=== PATIENT | female | born 1985 | race Caucasian/White ===

== ENCOUNTER 2016-10-29 11:18 | Inpatient (IN) | payer BC ==
[~2016-10-29] VITALS: Ht 170.2 cm; Wt 82.7 kg
[2016-10-29] MEDS ORDERED: LACTATED RINGER'S 1000ML 1,000 ML IV SCH ×2 (12:12→21:39)
[2016-10-29 12:36] LABS: HEMATOCRIT 36.8 % (37-47); MEAN CORPUSCULAR HEMOGLOBIN 30.3 pg (25-34); MEAN CORPUSCULAR HGB CONC 32.9 g/dl (32-36); MEAN PLATELET VOLUME 10.2 fL (7.4-10.4); PLATELET COUNT 232 K/uL (130-400); WHITE BLOOD COUNT 11.75 K/uL (4.8-10.8)
--- NOTE | 2016-10-29 12:41 | HISTORY & PHYSICAL EXAMINATION ---
DATE OF ADMISSION: 10/29/2016 CHIEF COMPLAINT: Contractions. HISTORY OF PRESENT ILLNESS: The patient is a 31-year-old G1, P0 at 40 weeks and 3 days of gestation who has been feeling contractions since last night. They got closer and more painful around 3:30 a.m. this morning. She has been feeling them every 4-5 minutes. She denies any leakage of fluid or vaginal bleeding. She reports good movements. She denies headaches, change in her vision, nausea, vomiting, epigastric or right upper quadrant pain. She denies chest pain, shortness of breath, fever, chills. Her has been uncomplicated except: 1. Rh negative. She received RhoGAM at 28 weeks. 2. Rubella equivocal. She needs rubella. 3. IVF . 4. History of migraines. PAST MEDICAL HISTORY: As above. PAST SURGICAL HISTORY: Dental wisdom teeth extraction, hysteroscopy with polypectomy by myself in 2013, hysteroscopy and polypectomy by Dr. Barton 2015. MEDICATIONS: vitamins and iron sulfate. ALLERGIES: No known drug allergies. SOCIAL HISTORY: The patient denies smoking, alcohol or drug use. GYNECOLOGIC HISTORY: The patient denies any history of STDs including Chlamydia, gonorrhea, herpes. OBSTETRICAL HISTORY: This is her first . LABS: Her blood type is O negative, antibody screen negative, rubella titer equivocal, RPR nonreactive, hepatitis B surface antigen negative. Urine culture was negative. GC chlamydia cultures were negative. H&H was 12/34, platelets 286, 1-hour Glucola was 103 and GBS culture was negative on 09/30/2016. PHYSICAL EXAMINATION: GENERAL: The patient is alert, oriented x3, not in acute distress. VITAL SIGNS: Stable. Afebrile. CARDIOVASCULAR SYSTEM: S1, S2, RRR. LUNGS: Clear to auscultation bilaterally. ABDOMEN: Soft, gravid, Jonny 7-1/2 to 8 pounds. EXTREMITIES: Nontender, no edema. PELVIC EXAMINATION: Her cervix is 5 cm dilated, 80% effaced, -2 with bulging membranes. heart rate 140s, category 1. Tocometer contractions every 2-3 minutes. ASSESSMENT AND PLAN: The patient is a 30-year-old G1, P0 at 40 weeks and 3 days of gestation presenting with regular contractions in active labor. Vital signs stable, afebrile. GBS negative. heart rate reassuring. Plan is admit. Start IV fluids. The patient considering epidural for pain later and continue to monitor. MTDD
[2016-10-29] MEDS ORDERED: PRENTAB26 PO (13:31)
[2016-10-29 13:32] VITALS: Ht 170.2 cm; Wt 82.7 kg
[2016-10-29] MEDS: LACTATED RINGER'S 1000ML 1,000 ML IV PRN ×2 (15:07→16:03)
[2016-10-29] MEDS ORDERED: FENTANYL CITRATE INJ 50 MCG/1 ML 2 ML VIAL ONE (15:18)
[2016-10-29] MEDS ORDERED: BUPIVACAINE 0.25% 30 ML VIAL ONE (15:18)
[2016-10-29] MEDS ORDERED: FENTANYL 2MCG/ML ROPIV 1.25MG/ML 100ML BAG EPI ONE (15:18)
[2016-10-29] MEDS ORDERED: EpHEDrine SULFATE INJ 50 MG/ML AMP ONE (15:18)
[2016-10-29] MEDS ORDERED: NALOXONE HCL INJ 1 MG in SODIUM CHLORIDE 0.9% 1000ML 1,000 ML IV PRN (16:56)
[2016-10-29] MEDS ORDERED: LACTATED RINGER'S 1000ML 500 ML IV PRN ×2 (16:56→20:00)
[2016-10-29] MEDS ORDERED: NALOXONE HCL INJ 0.4 MG/1 ML VIAL/CARP IV PRN (17:00)
[2016-10-29] MEDS ORDERED: DiphenhydrAMINE HCL 50 MG/ML VIAL IV PRN (17:00)
[2016-10-29] MEDS ORDERED: EpHEDrine SULFATE INJ 50 MG/ML AMP IV PRN (17:00)
[2016-10-29] MEDS ORDERED: ONDANSETRON INJ 2 MG/ML 2 ML VIAL IV PRN (17:00)
[2016-10-29] MEDS ORDERED: FENTANYL 2MCG/ML ROPIV 1.25MG/ML 100ML BAG EPI PRN (17:00)
[2016-10-29] MEDS ORDERED: NALBUPHINE HCL INJ 10 MG/ML AMP IV PRN (17:00)
[2016-10-29] MEDS ORDERED: OXYTOCIN 30 UNITS/500ML NSS IV STA (20:00)
[2016-10-29] MEDS ORDERED: OXYTOCIN 30 UNITS/500ML NSS IV ONE (20:03)
[2016-10-29] MEDS ORDERED: NURSING VERBAL MED ORDER ONE (21:15)
[2016-10-29] MEDS ORDERED: CEFAZOLIN IV 2,000 MG in DEXTROSE 5% 50ML 50 ML IV ONE (21:15)
[2016-10-29] MEDS ORDERED: MISOPROSTOL 200 MCG TAB ONE (21:19)
--- NOTE | 2016-10-29 21:39 | Anesthesia Procedure Note ---
Anesthesia Epidural Removal Nt Date & Time Oct 29, 2016 at 21:39 Vital Signs Pain Intensity: 3.0 Notes Mental Status: alert / awake / arousable, participated in evaluation Nausea / Vomiting: adequately controlled Pain: adequately controlled Airway Patency, RR, SpO2: stable & adequate BP & HR: stable & adequate Hydration State: stable & adequate Neuraxial Anesthesia: was administered Anesthetic Complications: no major complications apparent, pt satisfied with anesthetic care Epidural: removed without complications, with tip intact
[2016-10-29] MEDS ORDERED: HYDROCORTISONE ACETATE 25 MG SUPP PR PRN (21:45)
[2016-10-29] MEDS ORDERED: LANOLIN OINT EXT PRN ×2 (21:45)
[2016-10-29] MEDS ORDERED: OXYTOCIN 30 UNITS/500ML NSS IV PRN (21:45)
[2016-10-29] MEDS ORDERED: MISOPROSTOL 200 MCG TAB PR SCH (21:45)
[2016-10-29] MEDS ORDERED: BENZOCAINE 20% AER SPR 82.5 GM CAN EXT PRN (21:45)
[2016-10-29] MEDS ORDERED: OXYCODONE/ACETAMINOPHEN 5-325 TAB PO PRN (21:45)
[2016-10-29] MEDS ORDERED: SUPERCREAM 0.870 % 15GM JAR EXT PRN (21:45)
[2016-10-30] VITALS (10 sets, daily range): BP systolic 112–124; BP diastolic 66–78; PULSE 65–97; TEMP 36.6–37.3; O2SAT 96–98
--- NOTE | 2016-10-30 07:06 | DELIVERY SUMMARY ---
DATE OF OPERATION: 10/29/2016 DETAILS OF DELIVERY: The patient was found to be a fully dilated and desired to push. She pushed for about 1 hour and delivered the head without difficulty. There was noted to be tight nuchal cords around the neckx3. The shoulders were delivered with minimal traction. The nuchal cords were released and then baby was handed off to the mother where mouth and nose were suctioned. Cord blood was clamped x2 and cut. It was a 3-vessel cord. Cord blood was obtained. Vagina and perineum were checked for lacerations. There was a second degree perineal laceration with vaginal extension. It was confirmed to be a second degree with rectal exam. Excellent sphincter tone was noted. The gloves were changes. The external fibers of the sphincter muscles were reinforced with Allis clamps and they were brought together with 2-0 Vicryl in a U-type suture. And now rectal exam was repeated. There are no sutures felt and excellent sphincter tone was noted and gloves were changed. The vaginal mucosa was repaired with 2-0 Vicryl in a running-locked fashion and the perineal body muscles and bulbocavernosus in a running fashion, and skin in a subcuticular fashion. Placenta was found to be in the vagina, delivered spontaneously as intact and complete. Uterus was explored and found to be empty. Fundus was firm. Lower segment was cleared of all clots and debris. EBL was 300 ml. There was oozing of blood from the repair. It was repaired again with 2-0 Vicryl in a running locked fashion. The vaginal mucosa was found to be fragile and oozing blood and decision was made to apply Seema powder over the vaginal mucosa for hemostasis. Excellent hemostasis was achieved. Two 4x4 sponges were placed over for pressure and those were removed after 2 hours. Mom and baby tolerated the procedure well. Sponge, lap, and needle count were correct x2. Baby was a viable male infant, Apgars 7/10. The weight is pending. No complications happened and I was present during the whole procedure. I attest to the content of the Intraoperative Record and any orders documented therein. Any exceptions are noted below. MTDD
[2016-10-30 07:11] LABS: HEMATOCRIT 36.5 % (37-47)
[2016-10-30] MEDS: IBUPROFEN 600 MG TAB PO PRN ×3 (07:19→15:59)
[2016-10-30] MEDS: PRENATAL VITAMIN TAB PO SCH (08:32)
[2016-10-30] MEDS: DOCUSATE SODIUM 100 MG CAP PO SCH ×2 (08:32→20:00)
[2016-10-30] MEDS: FERROUS SULFATE 325 MG TAB PO SCH (08:33)
[2016-10-30] MEDS ORDERED: MEASLES, MUMPS & RUBELLA VIRUS VIAL SQ. ONE (09:00)
[2016-10-30] MEDS ORDERED: DIPHTHERIA/TETANUS/PERTUSSIS 0.5 ML SYR/VIAL IM. ONE (09:00)
--- NOTE | 2016-10-30 09:14 | OB/GYN Progress Note ---
NIB FINISHER Progress Note Date of Service Oct 30, 2016. Subjective conversation w/ patient, physical exam Ambulation: ambulating normally Voiding: no voiding problems Passing Gas: Yes Diet Tolerance: Regular Diet Lochia: Small Feeding Type: Breast Feeding Objective Vital Signs Date Time Temp Pulse Resp B/P (MAP) Pulse Ox O2 Delivery O2 Flow Rate FiO2 10/30/16 08:53 36.7 85 17 117/68 (84) 96 Room Air 10/30/16 03:25 36.8 18 124/78 (93) Room Air 10/30/16 01:15 Room Air 10/30/16 01:14 37.3 97 18 124/70 (88) Room Air Physical Exam General Appearance: WELL-APPEARING, NO APPARENT DISTRESS Abdomen: non tender, soft Fundus: Firm Incision Description: Erythema Extremities: non-tender, normal inspection, no pedal edema hemorrhoid tag inflamed Laboratory Results Last 24 Hours Test 10/29/16 12:20 10/30/16 06:35 White Blood Count 11.75 K/uL Red Blood Count 4.00 M/uL Hemoglobin 12.1 g/dL 12.2 g/dL Hematocrit 36.8 % 36.5 % Mean Corpuscular Volume 92.0 fL Mean Corpuscular Hemoglobin 30.3 pg Mean Corpuscular Hemoglobin Concent 32.9 g/dl RDW Standard Deviation 43.5 fL RDW Coefficient of Variation 13.0 % Platelet Count 232 K/uL Mean Platelet Volume 10.2 fL
[2016-10-30] MEDS ORDERED: BISACODYL 5 MG TABEC PO SCH (20:00)
[2016-10-30] MEDS: ACETAMINOPHEN 325 MG TAB PO PRN (20:34)
[2016-10-30] MEDS: MAGNESIUM HYDROXIDE SUSP 30 ML UDC PO SCH ×2 (22:00→22:18)
[2016-10-30] MEDS ORDERED: NURSING VERBAL MED ORDER ONE (22:15)
[2016-10-31] MEDS: ACETAMINOPHEN 325 MG TAB PO PRN (05:03)
[2016-10-31 06:32] LABS: HEMATOCRIT 30.3 % (37-47); MEAN CELL VOLUME 93.2 fL (80-100); MEAN CORPUSCULAR HEMOGLOBIN 32.6 pg (25-34); MEAN PLATELET VOLUME 10.3 fL (7.4-10.4); PLATELET COUNT 180 K/uL (130-400); RED BLOOD COUNT 3.25 M/uL (4.2-5.4); WHITE BLOOD COUNT 10.04 K/uL (4.8-10.8)
[2016-10-31] MEDS ORDERED: BISACODYL 10 MG SUPP PR PRN (07:00)
[2016-10-31 07:28] VITALS: BP 128/73; PULSE 65; TEMP 36.6
[2016-10-31] MEDS: PRENATAL VITAMIN TAB PO SCH (08:04)
[2016-10-31] MEDS: FERROUS SULFATE 325 MG TAB PO SCH (08:04)
[2016-10-31] MEDS: DOCUSATE SODIUM 100 MG CAP PO SCH (08:04)
[2016-10-31] MEDS ORDERED: MTR600X PO (10:27)
--- NOTE | 2016-10-31 10:29 | Discharge Instructions ---
Discharge Instructions Date of Service Oct 31, 2016. Admission Reason for Admission: Induction Discharge Discharge Diagnosis / Problem: term delivered Discharge Goals Goal(s): Routine recovery after delivery Activity Recommendations Activity Limitations: as noted below Lifting Limitations: no more than 10 pounds, gradually increase as tolerated Exercise/Sports Limitations: gradually increase as tolerated May Resume Sexual Activity: after follow-up appointment Driving or Machine Use: resume 3 days after discharge . Instructions / Follow-Up Instructions / Follow-Up ACTIVITY RECOMMENDATIONS: * Gradual return to full activity over the next 2-3 weeks. * No lifting - nothing heavier than baby over the next 2-3 weeks. * Do not engage in vigorous exercise, sexual activity or sports until cleared by your physician. * Do not drive or operate any motorized equipment until cleared by your physician. * You may shower/bathe daily. BREAST CARE: If you are not breast feeding: * Wear a supportive bra 24 hours a day for one to two weeks. * Avoid stimulating your breasts and nipples as much as possible during the first few weeks after delivery. * When taking a shower, have the warm water hit your back, not breasts. * When your breasts feel full, apply ice packs. Usually three to four times a day helps ease the discomfort. * Take a mild pain medication (Tylenol/Motrin) when you are uncomfortable. If breast feeding: * Use breast milk to lubricate nipples. Lansinoh cream may be used for sore nipples. You do not need to remove cream prior to breast feeding. If using a different brand of cream, check the label for directions regarding removal of cream prior to nursing. * Wear a supportive bra. * If having problems with breasts or breast feeding, call a specialty development consultant or your health care provider. EPISIOTOMY CARE: After delivery, if you have an episiotomy (stitches), the following steps will ease discomfort and aid healing. * For the first 24 hours after delivery, place ice packs next to your episiotomy to help reduce swelling. * After the first 24 hour-period, sitz baths, either portable or in the tub, are suggested. A shower with a shower arm sprayed over the episiotomy may be comforting. * Tawanna care should be done after each voiding and bowel movement. Squirt warm water from a plastic bottle over the perineum (region of the body between the anus and urinary opening) and pat dry. * Use Dermoplast to ease discomfort. Shake container. [place] directly over the episiotomy. * Place a Tucks on a clean sanitary pad next to your episiotomy. OVER THE COUNTER MEDICATION: * For discomfort or pain, you may use Acetaminophen (Tylenol), Ibuprofen (Advil ), or Naproxen (Aleve) following the package directions. * For constipation you may use Colace following the package directions. SPECIAL CARE INSTRUCTIONS: When you are discharged from the hospital, it is important for you to follow the instructions listed below: * During the first week at home, you should be able to care for yourself and your baby. In addition, the usual light household activities are encouraged. * Limit your activities to the way you feel. Do not try to clean the house or move furniture. Be sensible. * If you actively engage in sports and have done so up until the time of your delivery, you may resume these activities as soon as you feel able. This may take up to one month or even longer. Use good judgment. * Continue to take your vitamins for at least six weeks after the of your baby. * Your diet need not be limited unless you were on a special diet before your delivery. Breast-feeding mothers need around 2500 calories per day and at least 64-80 ounces of fluid per day (8 to 10 glasses). * You should eat foods from the four major food groups. Crash diets or fad diets are to be avoided. Eating lean meats, fresh fruits and vegetables, low-fat dairy products, high fiber foods and a regular exercise program, will help you get back to your pre- weight without putting your health at risk. * Constipation is sometimes a problem after delivery. Take a mild laxative as needed. If breast feeding, Milk of Magnesia is acceptable to use. You may use a suppository or Fleets enema if no episiotomy. * A daily shower or tub bath is suggested. Be sure to thoroughly and gently dry the perineum. * A bloody vaginal discharge will usually continue until around four weeks post . A small amount of bleeding may continue for as long as six weeks. Vaginal discharge changes from the bright red bleeding after delivery to pink then brownish and finally yellowish-pink before becoming white and disappearing. * Bleeding may increase with activity. Your first period may come in 4-8 weeks. If you are breast feeding, your period may be delayed even longer. * [place] (sex) can begin whenever both you and your partner feel comfortable and do not have any form of genital infection. It is recommended that you wait until after your return appointment and discuss with your physician. If you have questions, please talk to your health care practitioner. A condom should be used to prevent infection and . * Foreplay, gentle intercourse and lubrication is very important the first several times to prevent pain. A water-based lubricant such as K-Y jelly or Astroglide may be used. * Tampons may be used six weeks after delivery. * Douching should be avoided for 6 weeks after delivery. * If you have RH negative blood and your baby is RH positive, you will receive RHOGAM by injection prior to discharge. The nurse will give you a card to keep with you that has the date and place that you received RHOGAM after delivery. * During your care, you had a Rubella screen done to check for the presence of rubella antibodies in your blood. If your test was negative, you will receive a Rubella vaccine prior to discharge. This vaccine may cause a fever, soreness at the injection site and flu-like symptoms. If these symptoms persist, notify your health care practitioner. is not advised for three months after a Rubella vaccine. There is a higher chance of having a baby with defects if conceived within three months of getting the vaccine. * If you were discharged 24 hours from delivery or before 48 hours: Visiting nurses will come to your home 48 hours after discharge to assess you and your baby. The visiting nurse will meet with you while you are in the hospital to arrange a time and get directions to your home. * Verbalizes understanding of car seat law as reviewed with patient nursing. * Car Seat hand-out given and reviewed with patient by nursing. * Shaken baby information reviewed with patient by nursing. Call you doctor if: * Heavy bleeding (saturating several pads an hour) or passing clots the size of your fist. * A fever >101 degrees F (38.3 degrees C) on two occasions four hours apart and/or chills. * Unusual pain in the pelvic or vaginal areas. * "Baby Blues" lasting longer than two weeks. If you have any questions or concerns, call your health care practitioner at . FOLLOW-UP VISIT: * Please call the office at to schedule a 6 week examination. It is important you keep this appointment. * It is important for you to make arrangements for either yearly or twice yearly check-ups thereafter. Current Hospital Diet Patient's current hospital diet: Regular OB Diet Discharge Diet Recommended Diet: Regular OB Diet Fluid Restriction: None Pending Studies Studies pending at discharge: no Medical Emergencies . Who to Call and When: Medical Emergencies: If at any time you feel your situation is an emergency, please call 911 immediately. . Non-Emergent Contact Non-Emergency issues call your: Primary Care Provider . . "Provider Documentation" section prepared by Brice Higgins. . VTE Core Measure Inpt VTE Proph given/why not?: Treatment not indicated
--- NOTE | 2016-10-31 10:31 | OB/GYN Progress Note ---
RUBBER MOLD MAKER Progress Note Date of Service Oct 31, 2016. Subjective conversation w/ patient, physical exam Ambulation: ambulating normally Voiding: no voiding problems Passing Gas: Yes Diet Tolerance: Regular Diet Lochia: Small Objective Vital Signs Date Time Temp Pulse Resp B/P (MAP) Pulse Ox O2 Delivery O2 Flow Rate FiO2 10/31/16 07:55 Room Air 10/31/16 07:28 36.6 65 16 128/73 (91) Room Air 10/30/16 23:20 36.9 67 16 118/66 (83) Room Air 10/30/16 23:20 Room Air 10/30/16 19:30 36.9 88 20 120/72 (88) Room Air 10/30/16 15:53 37.0 85 20 112/69 (83) 10/30/16 15:50 37.0 85 20 112/69 10/30/16 15:30 Room Air 10/30/16 12:15 36.8 65 18 122/72 (89) 97 Room Air Physical Exam General Appearance: WELL-APPEARING, NO APPARENT DISTRESS Abdomen: non tender, soft, no organomegaly Fundus: Firm Extremities: non-tender, normal inspection, no pedal edema Laboratory Results Last 24 Hours Test 10/31/16 06:17 White Blood Count 10.04 K/uL Red Blood Count 3.25 M/uL Hemoglobin 10.6 g/dL Hematocrit 30.3 % Mean Corpuscular Volume 93.2 fL Mean Corpuscular Hemoglobin 32.6 pg Mean Corpuscular Hemoglobin Concent 35.0 g/dl RDW Standard Deviation 46.1 fL RDW Coefficient of Variation 13.4 % Platelet Count 180 K/uL Mean Platelet Volume 10.3 fL Assessment and Plan Post- Day Number: 2 Continue Routine Care: discharged
[2016-10-31 11:14] VITALS: BP_DIAS 73; PULSE 65; TEMP 36.6
== END 2016-10-31 12:00 | disposition home or self-care (01) | DRG 775 ==
LOC: C.LD 11:18 → C.OPB 11:18 → C.LD 12:13 → C.OPB 12:30 → C.OBG 10-30 00:18 → EDSTATUS 10-30 11:19
PROVIDERS: ADMIT Obstetrics & Gynecology; ATTEND Obstetrics & Gynecology
PROC: 10E0XZZ Delivery of Products of Conception, External Approach (ICD-10-PCS; principal; 2016-10-29)
PROC: 0KQM0ZZ Repair Perineum Muscle, Open Approach (ICD-10-PCS; principal; 2016-10-29)
DX: O36.0930 Maternal care for other rhesus isoimmunization, third trimester, not applicable or unspecified (principal); O09.813 Supervision of pregnancy resulting from assisted reproductive technology, third trimester; O69.1XX0 Labor and delivery complicated by cord around neck, with compression, not applicable or unspecified; O70.1 Second degree perineal laceration during delivery; Z3A.40 40 weeks gestation of pregnancy; Z37.0 Single live birth

== ENCOUNTER 2019-03-07 07:25 | Inpatient (IN) ==
--- NOTE | 2019-02-22 09:46 | PAT Medication Instructions ---
Medication Instructions Date of Service February 22, 2019 Home Medications Medication Instructions Recorded Ibuprofen 600 mg PO Q4H PRN #30 tab 10/31/16 Multivit/Min/Iron/Fol Ac/Pren ( Vitamin) 1 tab PO DAILY Ibuprofen 600 mg PO Q4H PRN ASK your surgeon for instructions Ibuprofen 600 mg PO Q4H PRN DO NOT take the morning of surgery Multivit/Min/Iron/Fol Ac/Pren ( Vitamin) 1 tab PO DAILY Other Notes If you have any questions please call us at [phone] or [phone] or [phone] or [phone]
--- NOTE | 2019-02-23 11:44 | Anesthesiology Consultation ---
Date of Service February 23, 2019 Assessment & Plan (1) Encounter for pre-operative examination: Hx epidural with previous vaginal delivery (2016). Patient states she had LE hives day after delivery. No definitive reason but was told maybe related to epidural-- resolved with benadryl. Chart Review Chart Review: Acceptable Risk for Surgery (pending preop labs) and Patient seen in Pre Admission Testing Teaching & Discussion Pre-Anesthesia Teaching/Discussion Notes: Instructed NPO after midnight before surgery,except medications with 15 cc of water. Medication instructions provi ded according to the PAT guidelines. History Surgery Operation Date: 03/07/19 08:50 Proposed Procedures p Section in LD - Silvia Suarez MD Height/Weight Height: 5 ft 7 in Weight: 73 kg Allergies Allergy/AdvReac Type Severity Reaction Status Date / Time albuterol Allergy Intermediate RASH Verified 02/23/19 08:26 Medications Home Medications Medication Instructions Recorded Confirmed Last Taken 1 dose PO QPM 02/23/19 02/23/19 Unknown cholecalciferol (vitamin D3) 5,000 unit PO QPM 02/23/19 02/23/19 Unknown [Vitamin D3] iron 1 tab PO HS 02/23/19 02/23/19 Unknown Past Medical History Medical History Chronic headache History of ovarian cyst Past Surgical History Surgical History History of wisdom tooth extraction Status post hysteroscopic polypectomy x 2 Past Anesthesia History No Family Hx of Anesthesia Complications and Other Hx epidural with previous vaginal delivery (2017). Patient states she had LE hives day after delivery. No definitive reason but was told maybe related to epidural-- resolved with benadryl. History of PONV No Hx of PONV and Hx of Motion Sickness Social History Smoking Status: Never smoker Do You Dip or Chew Tobacco: No Hx Alcohol Use: No Hx Substance Use: No substance use type: does not use Review of Systems Patient denies chest pain, shortness of breath, reflux, cough, wheezing, palpitations. Physical Exam Vital Signs VITALS BP 119/82 P 71 TEMP 97.8 SP02 97%RA RESP 16 PHYSICAL Full neck and c-spine range of motion. Full TMJ range of motion. TMD 3 finger breaths Mallampati Score 1 Dentition: intact Lungs: clear throughout to auscultation Cardiac: regular rate and rhythm, no murmurs noted Spine: normal Carotid arteries: negative bruit Extremities: no edema
[2019-02-23 12:16] LABS: Eosinophils # (auto) 0.04 K/uL (0-0.5); Eosinophils % (auto) 0.5 %; Hematocrit (blood only) 36.3 % (37-47); Hemoglobin 12.5 g/dL (12.0-16.0); Immature Granulocytes # (auto) 0.04 K/uL (0.00-0.02); Immature Granulocytes % (auto) 0.5 %; Lymphocytes # (auto) 1.46 K/uL (1.2-3.4); Mean Corpuscular Hemoglobin 31.9 pg (25-34); Mean Corpuscular Hgb Conc 34.4 g/dL (32-36); Mean Corpuscular Volume 92.6 fL (80-100); Mean Platelet Volume 10.6 fL (7.4-10.4); Monocytes # (auto) 0.39 K/uL (0.11-0.59); Monocytes % (auto) 4.8 %; Neutrophils # (auto) 6.16 K/uL (1.4-6.5); Neutrophils % (auto) 76.2 %; Platelet Count 194 K/uL (130-400); RDW Coefficient of Variation 12.8 % (11.5-14.5); RDW Standard Deviation 43.3 fL (36.4-46.3); Red Blood Count 3.92 M/uL (4.2-5.4); White Blood Count 8.09 K/uL (4.8-10.8)
[~2019-03-07 07:25] MED LIST: CEFAZOLIN 2,000 MG in SYRINGE 0 ML IV SCH; CEFAZOLIN 2000MG 2,000 MG/15 ML SYR IV SCH; CITRIC ACID/SODIUM CITRATE 15 ML UDC PO SCH; LACTATED RINGER'S 1,000 ML IV SCH
--- NOTE | 2019-03-07 09:08 | History & Physical Bridge Note ---
Date of Service March 07, 2019 History & Physical Bridge Note I have examined the patient, reviewed the History & Physical and in the interval since the performance of the History & Physical I have noted the following changes of clinical significance: no changes noted Bed side US done is baby is breech Desires primary Csection and tubal ligation
[2019-03-07] MEDS ORDERED: OXYTOCIN 10 UNITS/ML VIAL ONE ×2 (09:20→10:50)
[2019-03-07] MEDS ORDERED: fentaNYL citrate 100 MCG/2 ML VIAL ONE (09:20)
[2019-03-07] MEDS ORDERED: MoRPHine SULFATE PF 1 MG/ML 10 ML AMP/VIAL ONE (09:20)
[2019-03-07] MEDS ORDERED: BENZOCAINE 20% AER SPR 82.5 GM CAN EXT PRN (09:29)
[2019-03-07] MEDS ORDERED: SENNA 8.6 MG TAB PO PRN (09:29)
[2019-03-07] MEDS ORDERED: DiphenhydrAMINE HCL 50 MG/ML VIAL IV PRN ×2 (09:29→10:43)
[2019-03-07] MEDS ORDERED: KETOROLAC 30 MG/ML VIAL IV PRN (09:29)
[2019-03-07] MEDS ORDERED: HYDROCORTISONE ACETATE 25 MG SUPP PR PRN (09:29)
[2019-03-07] MEDS ORDERED: OXYCODONE/ACETAMINOPHEN 5mg/325mg TAB PO PRN (09:29)
[2019-03-07] MEDS ORDERED: SUPERCREAM 0.870% 15 GM JAR EXT PRN (09:29)
[2019-03-07] MEDS ORDERED: MAGNESIUM HYDROXIDE SUSP 30 ML UDC PO PRN (09:29)
[2019-03-07] MEDS ORDERED: ONDANSETRON INJ 2 MG/ML 2 ML VIAL IV PRN ×2 (09:29→10:43)
[2019-03-07] MEDS ORDERED: PROMETHAZINE HCL 25 MG in SODIUM CHLORIDE 0.9% 50 ML IV PRN ×2 (09:29→10:43)
[2019-03-07] MEDS ORDERED: DIPHTHERIA/TETANUS/PERTUSSIS 0.5 ML SYR/VIAL IM ONE (09:29)
[2019-03-07] MEDS ORDERED: LACTATED RINGER'S 1,000 ML IV SCH ×3 (09:30→14:03)
[2019-03-07] MEDS ORDERED: PHENYLEPHRINE 100MCG/ML 5ML SYR ONE ×2 (10:25→11:10)
[2019-03-07] MEDS ORDERED: NALBUPHINE HCL INJ 10 MG/ML AMP IV PRN (10:43)
[2019-03-07] MEDS ORDERED: NALOXONE HCL 1 MG in SODIUM CHLORIDE 0.9% 1000ML 1,000 ML IV PRN (10:43)
[2019-03-07] MEDS ORDERED: ePHEDrine sulfate 50 MG/ML AMP IV PRN (10:43)
[2019-03-07] MEDS ORDERED: NALOXONE HCL 0.4 MG/1 ML VIAL/CARP IV PRN (10:43)
[2019-03-07] MEDS ORDERED: MoRPHine SULFATE PF 1 MG/ML 10 ML AMP/VIAL INT SPINAL ONE (10:43)
[2019-03-07] MEDS ORDERED: HYDROmorphone INJ 0.5 MG/0.5 ML SYR IV PRN (10:43)
[2019-03-07] MEDS ORDERED: LACTATED RINGER'S 500 ML IV PRN (10:43)
[2019-03-07] MEDS ORDERED: NALOXONE HCL 0.08 MG in SYRINGE 1.8 ML IV PRN (10:43)
[2019-03-07] MEDS ORDERED: SODIUM CHLORIDE 0.9% 1000ML 1,000 ML IV SCH (10:45)
[2019-03-07] MEDS ORDERED: DC INTRASPINAL MORPHINE SCH (10:45)
[2019-03-07] MEDS ORDERED: NO NARCOTICS OR SEDATIVES SCH (10:45)
--- NOTE | 2019-03-07 11:29 | Post Operative Brief Note ---
Immediate Post Op Note v1 Date of Surgery March 07, 2019 Pre & Post Diagnosis Operation Date: 03/07/19 09:20 Pre-Op Diagnosis: Primary caesarean section for breech presentation at term; desires permanent sterilization Post-Op Diagnosis: Same as pre-op I identified the patient and participated in the time-out.: Yes Procedure Operation Date: 03/07/19 09:20 Actual Procedures p Primary Section in LD; delivery of live female child at 1041 - Silvia Suarez MD s Bilateral Tubal Ligation Labor & Deliv - Silvia Suarez MD Surgeon Silvia Suarez MD Lug Loader BERNARD Alcazar Estimated Blood Loss 700 Findings Consistent with Post-Op Diagnosis Fluids 2600 ML LR Drains [place] Catheter (330 ML) Anesthesia Type Spinal Complications none Disposition Accompanied Patient To Recovery: Yes Disposition: L&D Overlapping Procedure I was present for: the critical portions of procedure. (I WAS PRESENT FOR THE ENTIRE CASE)
[2019-03-07] MEDS: OXYTOCIN 20 UNITS in LACTATED RINGER'S 1,000 ML IV SCH ×2 (12:06→20:04)
--- NOTE | 2019-03-07 12:15 | Operative Report ---
DATE OF OPERATION: 03/07/2019 PREOPERATIVE DIAGNOSES: The patient is a 33-year-old G2, P1-0-0-1 at 39.3 weeks of gestation, persistent breech presentation at term, declines external cephalic version and desires permanent sterilization, declines nonsurgical reversible contraceptive options. POSTOPERATIVE DIAGNOSES: The patient is a 33-year-old G2, P1-0-0-1 at 39.3 weeks of gestation, persistent breech presentation at term, declines external cephalic version and desires permanent sterilization, declines nonsurgical reversible contraceptive options. PROCEDURE: Primary Low Transverse Section with Bilateral tubal ligation with [place] Method SURGEON: Silvia Suarez MD SYNCHRO ASSEMBLER: BERNARD Alcazar ESTIMATED BLOOD LOSS: 700 mL. FLUIDS: 2600 mL of lactated Ringer. DRAINS: Dumont catheter drained 330 mL of urine. ANESTHESIA: Spinal, Dr. Duvall. COMPLICATIONS: None. FINDINGS: Baby was a viable female infant delivered at 10:41 a.m. in melina breech presentation, Apgars were 9/9 and weight was 3100 grams. Maternal findings, normal uterus, fallopian tubes and ovaries. DESCRIPTION OF PROCEDURE: The patient was taken to the operating room where spinal anesthesia was given without difficulty. She was placed in dorsal supine position with a leftward tilt. She was prepared and draped in usual sterile fashion. A Pfannenstiel skin incision was made and carried through to the underlying layer of fascia with the Bovie. Fascia was incised in the midline and incision was extended laterally with the help of Mercedes scissors. Lower aspect of the fascial incision was then grasped with 2 Wesley clamps and elevated. Underlying rectus muscles were dissected off sharply with Mercedes scissors. Upper aspect of the fascial incision was then grasped with 2 Wesley clamps and elevated. Underlying rectus muscles were dissected off sharply with Mercedes scissors. Rectus muscles were in the midline. Peritoneum was entered bluntly and the peritoneal incision was extended superiorly and inferiorly with good visualization of the bladder. Bladder blade was inserted and the vesicouterine peritoneum was identified, grasped with pickups, entered sharply with Metzenbaum scissors. Bladder flap was created digitally and a bladder blade was reinserted. Lower uterine segment was incised in transverse fashion. Incision was extended laterally with the help of bandage scissors. Membranes were ruptured. Clear fluid was obtained. Baby was in melina breech position. Baby's buttocks were held and delivered without difficulty and then legs were delivered, then body and then arms without difficulty and then head came out right after spontaneously. Mouth and nose were suctioned. Baby was dried. Cord was clamped x2 and cut at 1-minute delay. Baby was handed off to the waiting pediatric team with Dr. Alcaraz. Cord blood was obtained. Placenta was delivered manually as intact and complete. Uterus was exteriorized, cleared of all clots and debris. The uterine incision was repaired with 0 Vicryl in a running locked fashion and a second imbricating layer was placed with 0 Vicryl in a running locked fashion. There was oozing on the left of middle of incision close to the suture line. It was controlled with [id number] stitches x2. Excellent hemostasis was achieved. The cul-de-sac was irrigated with warm normal saline and suctioned and then attention was turned to the patient and the fallopian tubes. Right fallopian tube was identified, grasped with 2 Andrews clamps and the mesosalpinx was entered on the avascular site with 2-0 plain catgut and the tube was tied and a loop was made around these clamps and then another tie was placed under the first tie and the fallopian tube above this tie was incised and sent to the pathology. About 3-4 cm length of fallopian tube was removed and the rest of the tube was hemostatic. Attention was turned to the left fallopian tube. It was identified, grasped with Andrews clamps x2 and the mesosalpinx was entered with 2-0 plain catgut from the avascular site. Tube was tied and the loop was made around these clamps. A second tie was placed under the first tie and then fallopian tube above the ties were incised with Metzenbaum scissors. About 3-4 cm length was excised and removed and sent to pathology. The base of the tube was hemostatic. The uterine incision was checked to be hemostatic again. Uterus was returned to the abdomen and pelvis was irrigated with warm normal saline and suctioned and then gutters were emptied of clots and then incision was checked to be again hemostatic. Parietal peritoneum was reapproximated with 3-0 Vicryl in a running fashion. Rectus muscles were reapproximated with the same suture in a running fashion and then good hemostasis was achieved on the muscles and under the rectus fascia. Then rectus fascia was reapproximated with 0 Vicryl in a running fashion. Subcuticular fat tissue was brought together with 3-0 Vicryl in a running fashion and the skin was closed with 4-0 Monocryl in a subcuticular fashion. The patient tolerated the procedure well. Sponge, lap, needle count was correct x3. She was given 2 grams of cefazolin before surgery. She was taken to recovery room in stable condition. No complications happened and I was present during whole procedure. I attest to the content of the Intraoperative Record and any orders documented therein. Any exceptions are noted below. LULU
--- NOTE | 2019-03-07 13:10 | Anesthesiology Progress Note ---
Date of Service March 07, 2019 Anesthesia Post Procedure Vital Signs Vital Signs: Temp Pulse Resp BP Pulse Ox 03/07/19 13:06 56 L 111/64 03/07/19 13:03 55 L 100 03/07/19 12:58 61 99 03/07/19 12:56 55 L 109/66 03/07/19 12:53 57 L 100 03/07/19 12:48 54 L 99 03/07/19 12:46 53 L 111/61 03/07/19 12:43 54 L 99 03/07/19 12:38 63 97 03/07/19 12:37 72 93 03/07/19 12:34 57 L 103/58 L 03/07/19 12:33 60 100 03/07/19 12:28 81 100 03/07/19 12:24 71 111/58 L 03/07/19 12:23 72 100 03/07/19 12:18 92 H 104/51 L 100 03/07/19 12:14 20 03/07/19 12:13 75 93 03/07/19 12:12 76 89 L 03/07/19 12:10 20 03/07/19 12:08 65 100 03/07/19 12:04 63 120/58 L 03/07/19 12:03 65 98 03/07/19 11:58 81 100 03/07/19 11:54 51 L 114/56 L 03/07/19 11:53 56 L 100 03/07/19 11:48 55 L 100 03/07/19 11:44 74 110/66 03/07/19 11:43 58 L 100 03/07/19 11:38 55 L 100 03/07/19 11:34 34.9 C L 53 L 20 104/64 03/07/19 11:33 55 L 100 03/07/19 10:01 66 99 03/07/19 09:56 63 100 03/07/19 09:51 68 99 03/07/19 09:46 68 100 03/07/19 09:41 57 L 98 03/07/19 09:36 62 100 03/07/19 09:35 67 93 03/07/19 09:31 60 100 03/07/19 09:26 56 L 100 03/07/19 09:21 71 100 03/07/19 09:16 60 99 03/07/19 09:11 68 98 03/07/19 09:06 57 L 100 03/07/19 07:39 70 121/73 03/07/19 07:30 36.8 C 20 Transfer of Care Handoff Completed per policy Notes Mental Status: alert / awake / arousable Patient Amnestic to Procedure: Yes Nausea / Vomiting: adequately controlled Pain: adequately controlled Airway Patency, RR, SpO2: stable & adequate BP & HR: stable & adequate Hydration State: stable & adequate Neuraxial Anesthesia: was administered and sensory block is resolving Anesthetic Complications: no major complications apparent and Pt Satisfied with anesthetic care Notes: Her temperature is now 36.
[2019-03-07] MEDS: KETOROLAC 30 MG/ML VIAL IV PRN ×2 (14:09→20:10)
[2019-03-07] MEDS: SIMETHICONE 80 MG CHEW PO SCH ×2 (16:16→20:09)
[2019-03-07] MEDS: DOCUSATE SODIUM 100 MG CAP PO SCH (20:09)
[2019-03-07] MEDS ORDERED: LACTATED RINGER'S 500 ML IV ONE ×2 (22:41→22:45)
--- NOTE | 2019-03-07 22:48 | Obstetrical Progress Note ---
Date of Service March 07, 2019 Subjective Patient is seen and examined. She feels well, no complaints. Pain is under control with oral meds. Tolerating clear diet with out N&V Flatus neg Bleeding is minimal No AMADOR/ Change in vision/fever/ chills/ CP/ SOB/ N&V/ Leg pain Breast feeding without problems Vital Signs Temp Pulse Pulse Resp BP BP Pulse Ox 03/07/19 22:00 18 97 03/07/19 20:00 18 99 03/07/19 18:50 18 100 03/07/19 17:45 18 99 03/07/19 16:45 67 18 126/70 99 03/07/19 15:45 62 18 102/64 99 03/07/19 15:15 59 L 18 106/55 L 98 03/07/19 14:45 36.5 C 62 18 109/63 99 03/07/19 14:33 60 99 03/07/19 14:28 68 98 03/07/19 14:23 67 99 03/07/19 14:21 63 93 03/07/19 14:18 65 99 03/07/19 14:13 62 98 03/07/19 14:08 59 L 97 03/07/19 14:07 54 L 109/63 03/07/19 14:03 57 L 96 03/07/19 13:58 61 99 03/07/19 13:53 66 99 03/07/19 13:48 65 99 03/07/19 13:43 57 L 98 03/07/19 13:38 85 97 03/07/19 13:37 74 119/62 03/07/19 13:35 36.5 C 18 03/07/19 13:33 64 97 03/07/19 13:28 69 98 03/07/19 13:23 64 99 03/07/19 13:18 65 99 03/07/19 13:13 65 100 03/07/19 13:08 60 100 03/07/19 13:06 56 L 111/64 03/07/19 13:05 36.3 C L 20 03/07/19 13:03 55 L 100 03/07/19 12:58 61 99 03/07/19 12:56 55 L 109/66 03/07/19 12:53 57 L 100 03/07/19 12:48 54 L 99 03/07/19 12:46 53 L 111/61 03/07/19 12:43 54 L 99 03/07/19 12:40 35.2 C L 20 03/07/19 12:38 63 97 03/07/19 12:37 72 93 03/07/19 12:34 57 L 103/58 L 03/07/19 12:33 60 100 03/07/19 12:28 81 100 03/07/19 12:24 71 111/58 L 03/07/19 12:23 72 100 03/07/19 12:18 92 H 104/51 L 100 03/07/19 12:14 20 03/07/19 12:13 75 93 03/07/19 12:12 76 89 L 03/07/19 12:10 20 03/07/19 12:08 65 100 03/07/19 12:04 63 120/58 L 03/07/19 12:03 65 98 03/07/19 11:58 81 100 03/07/19 11:54 51 L 114/56 L 03/07/19 11:53 56 L 100 03/07/19 11:48 55 L 100 03/07/19 11:44 74 110/66 03/07/19 11:43 58 L 100 03/07/19 11:38 55 L 100 03/07/19 11:34 34.9 C L 53 L 20 104/64 03/07/19 11:33 55 L 100 Pulse Ox 03/07/19 22:00 03/07/19 20:00 03/07/19 18:50 03/07/19 17:45 03/07/19 16:45 03/07/19 15:45 03/07/19 15:15 03/07/19 14:45 99 03/07/19 14:33 03/07/19 14:28 03/07/19 14:23 03/07/19 14:21 03/07/19 14:18 03/07/19 14:13 03/07/19 14:08 03/07/19 14:07 03/07/19 14:03 03/07/19 13:58 03/07/19 13:53 03/07/19 13:48 03/07/19 13:43 03/07/19 13:38 03/07/19 13:37 03/07/19 13:35 03/07/19 13:33 03/07/19 13:28 03/07/19 13:23 03/07/19 13:18 03/07/19 13:13 03/07/19 13:08 03/07/19 13:06 03/07/19 13:05 03/07/19 13:03 03/07/19 12:58 03/07/19 12:56 03/07/19 12:53 03/07/19 12:48 03/07/19 12:46 03/07/19 12:43 03/07/19 12:40 03/07/19 12:38 03/07/19 12:37 03/07/19 12:34 03/07/19 12:33 03/07/19 12:28 03/07/19 12:24 03/07/19 12:23 03/07/19 12:18 03/07/19 12:14 03/07/19 12:13 03/07/19 12:12 03/07/19 12:10 03/07/19 12:08 03/07/19 12:04 03/07/19 12:03 03/07/19 11:58 03/07/19 11:54 03/07/19 11:53 03/07/19 11:48 03/07/19 11:44 03/07/19 11:43 03/07/19 11:38 03/07/19 11:34 03/07/19 11:33 Intake & Output 03/07/19 03/07/19 03/07/19 06:59 14:59 22:59 Intake Total 2600 / 4195.833 1595.833 / 4195.833 Output Total 1030 / 1330 300 / 1330 Balance 1570 / 2865.833 1295.833 / 2865.833 Weight 73.028 kg Intake: IV 995.833 / 995.833 Pitocin 20 Units In Lr 1,000 ml 995.833 / 995.833 @ 125 mls/hr IV .Q8H1M [facility] Rx# :[id number] IV Perioperative 2600 / 2600 Oral 600 / 600 Output: Estimated Blood Loss 700 / 700 Urine Amount (Catheter) 330 / 630 300 / 630 Dumont/Indwelling 330 / 630 300 / 630 PE: General: Alert, orientedx3, NAD CVS: S1S2 RRR Lungs; CTAB Abd: soft, NT, ND, BS+, fundus firm, below Umbilicus Incision/ dressing: Clean, dry, intact Perineum intact, Lochia rubra minimal Ext; NT, no edema, SCD's on AP: 33 yo s/p Primary C Section, pod# 0 VSS Afebrile doing well UOP adequate but dark, will increase IVF Continue routine postop care Encourage ambulation, PO intake All questions were answered Results & Data Vital Signs (Past 12 Hours) Vital Signs Temp Pulse Pulse Resp BP BP Pulse Ox 03/07/19 22:00 18 97 03/07/19 20:00 18 99 03/07/19 18:50 18 100 03/07/19 17:45 18 99 03/07/19 16:45 67 18 126/70 99 03/07/19 15:45 62 18 102/64 99 03/07/19 15:15 59 L 18 106/55 L 98 03/07/19 14:45 36.5 C 62 18 109/63 99 03/07/19 14:33 60 99 03/07/19 14:28 68 98 03/07/19 14:23 67 99 03/07/19 14:21 63 93 03/07/19 14:18 65 99 03/07/19 14:13 62 98 03/07/19 14:08 59 L 97 03/07/19 14:07 54 L 109/63 03/07/19 14:03 57 L 96 03/07/19 13:58 61 99 03/07/19 13:53 66 99 03/07/19 13:48 65 99 03/07/19 13:43 57 L 98 03/07/19 13:38 85 97 03/07/19 13:37 74 119/62 03/07/19 13:35 36.5 C 18 03/07/19 13:33 64 97 03/07/19 13:28 69 98 03/07/19 13:23 64 99 03/07/19 13:18 65 99 03/07/19 13:13 65 100 03/07/19 13:08 60 100 03/07/19 13:06 56 L 111/64 03/07/19 13:05 36.3 C L 20 03/07/19 13:03 55 L 100 03/07/19 12:58 61 99 03/07/19 12:56 55 L 109/66 03/07/19 12:53 57 L 100 03/07/19 12:48 54 L 99 03/07/19 12:46 53 L 111/61 03/07/19 12:43 54 L 99 03/07/19 12:40 35.2 C L 20 03/07/19 12:38 63 97 03/07/19 12:37 72 93 03/07/19 12:34 57 L 103/58 L 03/07/19 12:33 60 100 03/07/19 12:28 81 100 03/07/19 12:24 71 111/58 L 03/07/19 12:23 72 100 03/07/19 12:18 92 H 104/51 L 100 03/07/19 12:14 20 03/07/19 12:13 75 93 03/07/19 12:12 76 89 L 03/07/19 12:10 20 03/07/19 12:08 65 100 03/07/19 12:04 63 120/58 L 03/07/19 12:03 65 98 03/07/19 11:58 81 100 03/07/19 11:54 51 L 114/56 L 03/07/19 11:53 56 L 100 03/07/19 11:48 55 L 100 03/07/19 11:44 74 110/66 03/07/19 11:43 58 L 100 03/07/19 11:38 55 L 100 03/07/19 11:34 34.9 C L 53 L 20 104/64 03/07/19 11:33 55 L 100 Pulse Ox 03/07/19 22:00 03/07/19 20:00 03/07/19 18:50 03/07/19 17:45 03/07/19 16:45 03/07/19 15:45 03/07/19 15:15 03/07/19 14:45 99 03/07/19 14:33 03/07/19 14:28 03/07/19 14:23 03/07/19 14:21 03/07/19 14:18 03/07/19 14:13 03/07/19 14:08 03/07/19 14:07 03/07/19 14:03 03/07/19 13:58 03/07/19 13:53 03/07/19 13:48 03/07/19 13:43 03/07/19 13:38 03/07/19 13:37 03/07/19 13:35 03/07/19 13:33 03/07/19 13:28 03/07/19 13:23 03/07/19 13:18 03/07/19 13:13 03/07/19 13:08 03/07/19 13:06 03/07/19 13:05 03/07/19 13:03 03/07/19 12:58 03/07/19 12:56 03/07/19 12:53 03/07/19 12:48 03/07/19 12:46 03/07/19 12:43 03/07/19 12:40 03/07/19 12:38 03/07/19 12:37 03/07/19 12:34 03/07/19 12:33 03/07/19 12:28 03/07/19 12:24 03/07/19 12:23 03/07/19 12:18 03/07/19 12:14 03/07/19 12:13 03/07/19 12:12 03/07/19 12:10 03/07/19 12:08 03/07/19 12:04 03/07/19 12:03 03/07/19 11:58 03/07/19 11:54 03/07/19 11:53 03/07/19 11:48 03/07/19 11:44 03/07/19 11:43 03/07/19 11:38 03/07/19 11:34 03/07/19 11:33
[2019-03-08] MEDS: KETOROLAC 30 MG/ML VIAL IV PRN (03:48)
[2019-03-08] MEDS ORDERED: DiphenhydrAMINE HCL 50 MG/ML VIAL IV PRN (06:26)
[2019-03-08] MEDS ORDERED: KETOROLAC 30 MG/ML VIAL IV PRN (06:26)
[2019-03-08] MEDS ORDERED: ONDANSETRON INJ 2 MG/ML 2 ML VIAL IV PRN (06:27)
[2019-03-08] MEDS ORDERED: PROMETHAZINE HCL 25 MG in SODIUM CHLORIDE 0.9% 50 ML IV PRN (06:27)
[2019-03-08 06:48] LABS: Eosinophils # (auto) 0.03 K/uL (0-0.5); Eosinophils % (auto) 0.3 %; Hematocrit (blood only) 29.5 % (37-47); Hemoglobin 10.2 g/dL (12.0-16.0); Immature Granulocytes # (auto) 0.01 K/uL (0.00-0.02); Immature Granulocytes % (auto) 0.1 %; Lymphocytes # (auto) 0.92 K/uL (1.2-3.4); Lymphocytes % (auto) 9.7 %; Mean Corpuscular Hemoglobin 31.2 pg (25-34); Mean Corpuscular Hgb Conc 34.6 g/dL (32-36); Mean Corpuscular Volume 90.2 fL (80-100); Mean Platelet Volume 10.5 fL (7.4-10.4); Monocytes # (auto) 0.71 K/uL (0.11-0.59); Monocytes % (auto) 7.5 %; Neutrophils # (auto) 7.77 K/uL (1.4-6.5); Neutrophils % (auto) 82.4 %; Platelet Count 153 K/uL (130-400); RDW Coefficient of Variation 12.7 % (11.5-14.5); Red Blood Count 3.27 M/uL (4.2-5.4); White Blood Count 9.44 K/uL (4.8-10.8)
--- NOTE | 2019-03-08 07:41 | Obstetrical Progress Note ---
Date of Service March 08, 2019 Physical Exam Physical Exam: abdomen soft and non tender incision is clean and dry vaginal bleeding scant hgb 10.4 bowel sounds hypoactive patient encouraged to chew gum no calf tenderness ambulating well Results & Data Vital Signs (Past 12 Hours) Vital Signs Temp Pulse Resp BP Pulse Ox Pulse Ox 03/08/19 04:05 18 98 03/08/19 03:40 36.6 C 60 18 106/69 99 03/08/19 02:15 18 98 03/08/19 01:15 18 98 03/08/19 00:00 18 98 03/07/19 23:15 36.7 C 69 18 106/66 98 98 03/07/19 22:00 18 97 03/07/19 20:00 18 99
[2019-03-08] MEDS: DOCUSATE SODIUM 100 MG CAP PO SCH ×2 (07:52→20:22)
[2019-03-08] MEDS: SIMETHICONE 80 MG CHEW PO SCH ×5 (07:52→20:22)
[2019-03-08] MEDS: PRENATAL VITAMIN 1 TAB PO SCH (07:52)
[2019-03-08] MEDS: FERROUS SULFATE 325 MG TAB PO SCH (07:52)
[2019-03-08] MEDS: IBUPROFEN 600 MG TAB PO PRN ×4 (09:11→22:36)
--- NOTE | 2019-03-08 10:13 | Anesthesiology Progress Note ---
Date of Service March 08, 2019 Anesthesia Post Procedure Vital Signs Vital Signs: Temp Pulse Pulse Resp BP BP BP 03/08/19 08:00 36.7 C 78 18 111/72 03/08/19 04:05 18 03/08/19 03:40 36.6 C 60 18 106/69 03/08/19 02:15 18 03/08/19 01:15 18 03/08/19 00:00 18 03/07/19 23:15 36.7 C 69 18 106/66 03/07/19 22:00 18 03/07/19 20:00 18 03/07/19 18:50 18 03/07/19 17:45 18 03/07/19 16:45 67 18 126/70 03/07/19 15:45 62 18 102/64 03/07/19 15:15 59 L 18 106/55 L 03/07/19 14:45 36.5 C 62 18 109/63 03/07/19 14:33 60 03/07/19 14:28 68 03/07/19 14:23 67 03/07/19 14:21 63 03/07/19 14:18 65 03/07/19 14:13 62 03/07/19 14:08 59 L 03/07/19 14:07 54 L 109/63 03/07/19 14:03 57 L 03/07/19 13:58 61 03/07/19 13:53 66 03/07/19 13:48 65 03/07/19 13:43 57 L 03/07/19 13:38 85 03/07/19 13:37 74 119/62 03/07/19 13:35 36.5 C 18 03/07/19 13:33 64 03/07/19 13:28 69 03/07/19 13:23 64 03/07/19 13:18 65 03/07/19 13:13 65 03/07/19 13:08 60 03/07/19 13:06 56 L 111/64 03/07/19 13:05 36.3 C L 20 03/07/19 13:03 55 L 03/07/19 12:58 61 03/07/19 12:56 55 L 109/66 03/07/19 12:53 57 L 03/07/19 12:48 54 L 03/07/19 12:46 53 L 111/61 03/07/19 12:43 54 L 03/07/19 12:40 35.2 C L 20 03/07/19 12:38 63 03/07/19 12:37 72 03/07/19 12:34 57 L 103/58 L 03/07/19 12:33 60 03/07/19 12:28 81 03/07/19 12:24 71 111/58 L 03/07/19 12:23 72 03/07/19 12:18 92 H 104/51 L 03/07/19 12:14 20 03/07/19 12:13 75 03/07/19 12:12 76 03/07/19 12:10 20 03/07/19 12:08 65 03/07/19 12:04 63 120/58 L 03/07/19 12:03 65 03/07/19 11:58 81 03/07/19 11:54 51 L 114/56 L 03/07/19 11:53 56 L 03/07/19 11:48 55 L 03/07/19 11:44 74 110/66 03/07/19 11:43 58 L 03/07/19 11:38 55 L 03/07/19 11:34 34.9 C L 53 L 20 104/64 03/07/19 11:33 55 L Pulse Ox Pulse Ox 03/08/19 08:00 97 03/08/19 04:05 98 03/08/19 03:40 99 03/08/19 02:15 98 03/08/19 01:15 98 03/08/19 00:00 98 03/07/19 23:15 98 98 03/07/19 22:00 97 03/07/19 20:00 99 03/07/19 18:50 100 03/07/19 17:45 99 03/07/19 16:45 99 03/07/19 15:45 99 03/07/19 15:15 98 03/07/19 14:45 99 99 03/07/19 14:33 99 03/07/19 14:28 98 03/07/19 14:23 99 03/07/19 14:21 93 03/07/19 14:18 99 03/07/19 14:13 98 03/07/19 14:08 97 03/07/19 14:07 03/07/19 14:03 96 03/07/19 13:58 99 03/07/19 13:53 99 03/07/19 13:48 99 03/07/19 13:43 98 03/07/19 13:38 97 03/07/19 13:37 03/07/19 13:35 03/07/19 13:33 97 03/07/19 13:28 98 03/07/19 13:23 99 03/07/19 13:18 99 03/07/19 13:13 100 03/07/19 13:08 100 03/07/19 13:06 03/07/19 13:05 03/07/19 13:03 100 03/07/19 12:58 99 03/07/19 12:56 03/07/19 12:53 100 03/07/19 12:48 99 03/07/19 12:46 03/07/19 12:43 99 03/07/19 12:40 03/07/19 12:38 97 03/07/19 12:37 93 03/07/19 12:34 03/07/19 12:33 100 03/07/19 12:28 100 03/07/19 12:24 03/07/19 12:23 100 03/07/19 12:18 100 03/07/19 12:14 03/07/19 12:13 93 03/07/19 12:12 89 L 03/07/19 12:10 03/07/19 12:08 100 03/07/19 12:04 03/07/19 12:03 98 03/07/19 11:58 100 03/07/19 11:54 03/07/19 11:53 100 03/07/19 11:48 100 03/07/19 11:44 03/07/19 11:43 100 03/07/19 11:38 100 03/07/19 11:34 03/07/19 11:33 100 Pain Intensity Abdomen: Pain Intensity: 2 Transfer of Care Handoff Completed per policy Notes Mental Status: alert / awake / arousable and participated in evaluation Nausea / Vomiting: adequately controlled Pain: adequately controlled Airway Patency, RR, SpO2: stable & adequate BP & HR: stable & adequate Hydration State: stable & adequate Neuraxial Anesthesia: was administered and sensory block resolved Anesthetic Complications: no major complications apparent and Pt Satisfied with anesthetic care Notes: Pt c/o mild rash on arms this morning and mild leg swelling - encourage patient to share this information with OB team. Patient denies headache this m orning. Has been up walking without weakness or residual numbness. Patient encouraged to contact anesthesia for any concerns or new headache
[2019-03-08] MEDS: OXYCODONE/ACETAMINOPHEN 5mg/325mg TAB PO PRN ×2 (16:31→22:37)
[2019-03-08] MEDS ORDERED: BISACODYL 5 MG TABEC PO SCH (20:00)
[2019-03-09] MEDS: OXYCODONE/ACETAMINOPHEN 5mg/325mg TAB PO PRN ×2 (06:02→10:31)
[2019-03-09] MEDS: IBUPROFEN 600 MG TAB PO PRN ×2 (06:03→10:30)
[2019-03-09 07:40] LABS: Hematocrit (blood only) 29.5 % (37-47); Hemoglobin 9.8 g/dL (12.0-16.0)
[2019-03-09] MEDS: DOCUSATE SODIUM 100 MG CAP PO SCH (07:56)
[2019-03-09] MEDS: SIMETHICONE 80 MG CHEW PO SCH ×2 (07:56→12:19)
[2019-03-09] MEDS: PRENATAL VITAMIN 1 TAB PO SCH (07:56)
[2019-03-09] MEDS: FERROUS SULFATE 325 MG TAB PO SCH (07:56)
[2019-03-09] MEDS ORDERED: BISACODYL 10 MG SUPP PR PRN (09:29)
--- NOTE | 2019-03-09 10:12 | Obstetrical Progress Note ---
Date of Service March 09, 2019 Assessment & Plan (1) delivery delivered: c/sec day #2 pt doing well wishes to be disch home Subjective Ambulation: ambulating normally Voiding: no voiding problems Passing Gas:: Yes Diet Tolerance:: clear liquids Lochia:: Small Feeding Type:: breast feeding Review of Systems All systems reviewed & are unremarkable except as noted in HPI & below Physical Exam Constitutional WD/WN, vitals as above well developed and well nourished Eyes PERRL, conjunctivae normal, anicteric sclerae ENMT external ear and nose normal, oropharynx normal Neck trachea midline, no thyromegaly Respiratory normal respiratory effort, lungs clear to auscultation Cardiovascular RRR, no murmur, no edema Chest (Breasts) normal inspection/palpation of breasts Gastrointestinal (Abdomen) normal bowel sounds, soft, nontender, no hepatosplenomegaly Musculoskeletal no cyanosis or clubbing, extremities motor strength 5/5 Skin no rashes, warm and dry + incision (Clean,dry and intact) Neurologic patellar DTR's 2+ bilat, sensation intact Psychiatric A+Ox3, euthymic affect Genitourinary normal external appearance Lymphatic no cervical or axillary lymphadenopathy Results & Data Vital Signs (Past 12 Hours) Vital Signs Temp Pulse Resp BP Pulse Ox 03/09/19 08:00 36.8 C 67 18 112/70 97 03/08/19 23:00 37.0 C 70 18 110/70
--- NOTE | 2019-03-11 00:58 | Discharge Summary ---
DETAILS OF ADMISSION: The patient is a 33-year-old G2, P1-0-0-1 at 39 weeks and 3 days of gestation, who was admitted on 03/07/2019 for scheduled for persistent breech presentation at term. Declined external cephalic version. She had primary low transverse and delivered a viable female infant in melina breech presentation, Apgars were 9/9. Her surgery was uncomplicated. See dictated OP note for details. On postop period, the patient was doing well. Vital signs stable, afebrile. Urine output was adequate and her bleeding was minimal. She was without problems, tolerating clear diet. Her incision dressing was clean, dry and intact. Abdomen was soft, nontender, nondistended. Bowel sounds present. On postop day #1, the patient was doing well. Vital signs stable, afebrile and the Dumont was discontinued. She was ambulated. She tolerated regular diet. She was passing gas. Postop day #2, the patient was doing well. Vital signs stable, afebrile. Physical exam was unremarkable. Incision was clean, dry and intact. Abdomen was soft, nontender, nondistended. Bowel sounds present. Her H and H was 9.8/29.5. She desired to be discharged home on postop day #2 on 03/09/2019. Discharge instructions were given. Prescriptions were written. She is to be seen in office in a week.
== END 2019-03-09 14:44 | disposition home or self-care (01) | DRG 785 ==
LOC: 4S1 07:25 → EDSTATUS 08:50 → 4S2 16:42
PROC: M.PPTLD (2019-03-07 09:20)